=== PATIENT | female | born 1995 | race Caucasian/White ===

== ENCOUNTER 2016-11-16 03:06 | Emergency (ER) | payer MEDICAID, OTHER ==
[2016-11-16] MEDS ORDERED: oxyCODONE/Acetamin 5/325 MG* TAB PO ONE (03:35)
[2016-11-16] MEDS ORDERED: Amoxicillin PO (*) 500 MG CAP PO ONE (03:35)
[2016-11-16 03:49] VITALS: BP 142/70
--- NOTE | 2016-11-16 04:27 | ED ---
fortunato Menjivar Timothy, scribed for Brigido Beyer on 11/16/16 at 0326 . Throat Pain/Nasal Congestion - HPI Summary HPI Summary: Bella Gray is a 20 yo female presenting to [facility] with 10/10 lower right posterior dental pain since 0200 this morning. She self-medicated with 1gm tylenol at 0230 this morning. She states she was eating and her tooth "cracked" . Her MHx includes gestational DM, gallstones. - History of Current Complaint Time Seen by Provider: 11/16/16 03:26 Hx Obtained From: Patient Onset/Duration: Sudden Onset, Lasting Hours, Still Present Severity: Moderate - Allergies/Home Medications Allergies/Adverse Reactions: Allergies Allergy/AdvReac Type Severity Reaction Status Date / Time No Known Allergies Allergy Verified 02/10/16 07:28 PMH/Surg Hx/FS Hx/Imm Hx Endocrine/Hematology History: Denies: Hx Anticoagulant Therapy, Hx Diabetes - gestional during , Hx Thyroid Disease Cardiovascular History: Denies: Hx Hypercholesterolemia, Hx Hypertension, Hx Pacemaker/ICD, Hx Peripheral Vascular Disease Respiratory History: Denies: Hx Asthma, Hx Chronic Obstructive Pulmonary Disease (COPD) GI History: Reports: Other GI Disorders - gallstones History: Denies: Hx Renal Disease Musculoskeletal History: Denies: Hx Arthritis, Hx Osteoporosis, Hx Scoliosis Sensory History: Denies: Hx Cataracts, Hx Contacts or Glasses, Hx Glaucoma, Hx Hearing Aid Opthamlomology History: Denies: Hx Cataracts, Hx Contacts or Glasses, Hx Glaucoma Neurological History: Denies: Hx Dementia, Hx Headaches, Hx Seizures, Other Neuro Impairments/ Disorders Psychiatric History: Denies: Hx Anxiety, Hx Depression, Hx Panic Disorder, Hx Substance Abuse - Surgical History Surgery Procedure, Year, and Place: GALBLADDER Infectious Disease History: No Infectious Disease History: Denies: Hx Hepatitis, Hx Human Immunodeficiency Virus (HIV), Traveled Outside the [place] in Last 30 Days - Family History Known Family History: Positive: Hypertension, Other - CVA - Social History Alcohol Use: Rare Substance Use Type: Reports: None, Other Substance Use Comment - Amount & Last Used: unknown Smoking Status (MU): Never Smoked Tobacco Have You Smoked in the Last Year: No Review of Systems Constitutional: Negative Eyes: Negative Positive: Dental Pain - lower right posterior Cardiovascular: Negative Respiratory: Negative Gastrointestinal: Negative Genitourinary: Negative Musculoskeletal: Negative Skin: Negative Neurological: Negative Psychological: Normal All Other Systems Reviewed And Are Negative: Yes Physical Exam Triage Information Reviewed: Yes Vital Signs On Initial Exam: Initial Vitals Temp Pulse Resp BP Pulse Ox 98.4 F 90 18 158/74 100 11/16/16 03:11 11/16/16 03:11 11/16/16 03:11 11/16/16 03:11 11/16/16 03:11 Vital Signs Reviewed: Yes Appearance: Positive: Well-Appearing, Well-Nourished, Pain Distress Skin: Positive: Warm, Skin Color Reflects Adequate Perfusion, Dry Head/Face: Positive: Normal Head/Face Inspection Eyes: Positive: EOMI, LEANNE ENT: Positive: Normal ENT inspection Dental: Positive: Percussion Tenderness @ - around teth 28 and 29 Neck: Positive: Supple, Nontender Respiratory/Lung Sounds: Positive: Clear to Auscultation, Breath Sounds Present Cardiovascular: Positive: RRR, Pulses are Symmetrical in both Upper and Lower Extremities Musculoskeletal: Positive: Normal, Strength/ROM Intact Neurological: Positive: Normal, Sensory/Motor Intact, Alert, Oriented to Person Place, Time Psychiatric: Positive: Normal Diagnostics - Vital Signs Vital Signs Temp Pulse Resp BP Pulse Ox 11/16/16 03:11 98.4 F 90 18 158/74 100 - Laboratory Lab Statement: Any lab studies that have been ordered have been reviewed, and results considered in the medical decision making process. EENT Course/Dx - Course Assessment/Plan: Belal Gray is a 20 yo female presenting with 10/10 lower right posterior dental pain since 0200, stating that she has a cracked tooth in that area. After clinical examination, she will be discharged home with dental pain and appropriate instructions. - Diagnoses Provider Diagnoses: Pain, dental Discharge - Discharge Plan Condition: Stable Disposition: HOME Patient Education Materials: Toothache (ED) Referrals: No Primary Care Phys,NOPCP [Primary Care Provider] - [facility] [place] [facility] [place]] - 3 Days Additional Instructions: Please follow up with the primary care physician provided regarding your visit to the emergency department, as well as dentist. Return to the emergency department with any new or recurring symptoms. The documentation as recorded by the fortunato munoz Timothy accurately reflects the service I personally performed and the decisions made by , Brigido Beyer.
== END 2016-11-16 03:47 | disposition home or self-care (01) ==
LOC: ED 03:06
DX: K08.89 Other specified disorders of teeth and supporting structures (principal)
CPT/HCPCS: 99282; A9270-GY

== ENCOUNTER 2017-12-07 11:54 | Emergency (ER) | payer OTHER ==
[2017-12-07 12:16] VITALS: BP 114/73
--- NOTE | 2017-12-07 14:02 | ED ---
Gallo Menjivar Tecjoon, scribed for Hernandez Gonsalves MD on 12/07/17 at 1241 . 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 Patients needle accidentally stuck chief of police and they volunteered to be tested for HIV and Hepatits C. Patient states that before today, they were texted at detox. Patient states that the needle in question was used to draw out the stuff and was not used in the skin. The needle was last used weeks ago. Patient have no pertinent medical complaints. - History Of Current Complaint Chief Complaint: EDGeneral Time Seen by Provider: 12/07/17 12:25 Hx Obtained From: Patient Onset/Duration: Resolved Severity Currently: None Aggravating Factor(s): nothing Alleviating Factor(s): nothing - Allergies/Home Medications Allergies/Adverse Reactions: Allergies Allergy/AdvReac Type Severity Reaction Status Date / Time No Known Allergies Allergy Verified 11/16/16 03:56 PMH/Surg Hx/FS Hx/Imm Hx Previously Healthy: Yes Endocrine/Hematology History: Denies: Hx Anticoagulant Therapy, Hx Diabetes - gestional during , Hx Thyroid Disease Cardiovascular History: Denies: Hx Hypercholesterolemia, Hx Hypertension, Hx Pacemaker/ICD, Hx Peripheral Vascular Disease Respiratory History: Denies: Hx Asthma, Hx Chronic Obstructive Pulmonary Disease (COPD) GI History: Reports: Other GI Disorders - gallstones History: Denies: Hx Renal Disease Musculoskeletal History: Denies: Hx Arthritis, Hx Osteoporosis, Hx Scoliosis Sensory History: Denies: Hx Cataracts, Hx Contacts or Glasses, Hx Glaucoma, Hx Hearing Aid Opthamlomology History: Denies: Hx Cataracts, Hx Contacts or Glasses, Hx Glaucoma Neurological History: Denies: Hx Dementia, Hx Headaches, Hx Seizures, Other Neuro Impairments/ Disorders Psychiatric History: Denies: Hx Anxiety, Hx Depression, Hx Panic Disorder, Hx Substance Abuse - Surgical History Surgery Procedure, Year, and Place: GALBLADDER Infectious Disease History: No Infectious Disease History: Denies: Hx Hepatitis, Hx Human Immunodeficiency Virus (HIV), Traveled Outside the [place] in Last 30 Days - Family History Known Family History: Positive: Hypertension, Other - CVA - Social History Alcohol Use: Rare Hx Substance Use: Yes Substance Use Type: Reports: Heroin Hx Tobacco Use: No Smoking Status (MU): Never Smoked Tobacco Have You Smoked in the Last Year: No Review of Systems Negative: Fever Negative: Abdominal Pain All Other Systems Reviewed And Are Negative: Yes Physical Exam - Summary Physical Exam Summary: Appearance: Well appearing, no pain distress Skin: warm, dry, reflects adequate perfusion Head/face: normal Eyes: EOMI, LEANNE ENT: normal Neck: supple, non-tender Respiratory: CTA, breath sounds present Cardiovascular: RRR, pulses symmetrical Abdomen: non-tender, soft Bowel Sounds: present Musculoskeletal: normal, strength/ROM intact Neuro: normal, sensory motor intact, A&Ox3 Triage Information Reviewed: Yes Vital Signs On Initial Exam: Initial Vitals Temp Pulse Resp BP Pulse Ox 99 F 80 16 114/73 99 12/07/17 12:14 12/07/17 12:14 12/07/17 12:14 12/07/17 12:14 12/07/17 12:14 Vital Signs Reviewed: Yes Diagnostics - Vital Signs Vital Signs Temp Pulse Resp BP Pulse Ox 12/07/17 12:14 99 F 80 16 114/73 99 - Laboratory Lab Results: Lab Results 12/07/17 Range/Units 12:25 Hepatitis C Antibody Pending HIV 1&2 Antibody Rapid Nonreactive (Nonreactive) Lab Statement: Any lab studies that have been ordered have been reviewed, and results considered in the medical decision making process. Complex Multi-Symp Course/Dx Course Of Treatment: This patient is a 22 year old female presenting to [facility] for voluntary blood draw following needle exposure to chief of police. Patients needle accidentally stuck chief of police and they volunteered to be tested for HIV and Hepatits C. Patients will be discharged with diagnosis of opiate addiction after blood draw. The patient is agreeable with this plan. HIV neg. Pending Hep C. - Diagnoses Provider Diagnoses: Opiate addiction Discharge - Sign-Out/Discharge Documenting (check all that apply): Discharge - Discharge Plan Condition: Good Disposition: HOME Referrals: No Primary Care Phys,NOPCP [Primary Care Provider] - - Billing Disposition and Condition Condition: GOOD Disposition: HOME The documentation as recorded by the Gallo munoz Tecjoon accurately reflects the service I personally performed and the decisions made by , Hernandez Gonsalves MD.
== END 2017-12-07 13:00 | disposition home or self-care (01) ==
LOC: ED 11:54
DX: F11.20 Opioid dependence, uncomplicated (principal)
CPT/HCPCS: 36415; 86703; 86803; 99281

== ENCOUNTER 2018-05-18 21:45 | Inpatient (IN) | payer MEDICAID ==
[2018-05-18] MEDS ORDERED: Penicillin G Potassium IV* 5,000,000 UNITS in NS 0.9% 100 ML* 100 ML IVPB ONE (22:44)
--- NOTE | 2018-05-18 23:02 | HP ---
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 Past Surgical History Comment: Laparoscopic cholecystectomy 2014 Pertinent Family History: See Records - Antepartal Records Antepartal Records: Reviewed, Complicated by: - late care seeker Review of Systems Constitutional: Uncomfortable CV Complaint: No Respiratory: Shortness of Breath: No Gastrointestinal: No Nausea/Vomiting, Soft Stool Genitourinary: No Leaking Fluid Musculoskeletal: Contractions Neurological: No Headache, No Visual Changes Movement: Normal Exam Allergies/Adverse Reactions: Allergies No Known Allergies Allergy (Verified 05/17/18 20:35) - Measurements Height: 5 ft 1 in Weight: 167 lb Body Mass Index (BMI): 31.5 Pre- Weight: 125 lb - Exam Breast: - - soft, no masses Extremities: No Edema Heart: Normal Rhythm/Heart Sounds HEENT: No Significant Findings Lungs: Clear Bilaterally Reflexes: DTR 2+ Thyroid: No Thyromegaly - Abdominal Exam Abdomen Exam: Non-Tender - Ultrasound/Biophysical Profile Ultrasound Status: Not Done Targeted Exam Findings Estimated Weight: 7 lbs Cervical Exam: 4cm Effacement: 80% Station: 0 Presenting Part: Vertex Membrane Status: Bulging Bleeding/Discharge: Bloody Show EFM Findings - External Monitor Findings Baseline Heart Rate: 130 External Monitor Findings: Accelerations Present, No Pattern of Variable or Late Decelerations, Variability Moderate External Monitor Findings Comment: category 1 Contractions: Regular, Moderate, 45-90 Seconds Contraction Frequency: 2-3 min Assessment/Plan - Assessment at 39 w 5d in early labor - Obstetrical Risk Factors Obstetrical Risk Factors: GBS Positive, Substance Abuse - Plan Plan: Admit - Anticipate Vaginal Delivery Plan Comment: will begin PCN prophylaxis May want nitrous oxide or epidural for pain relief - Date/Time of Admission Date of Admission: 05/18/18 Time of Admission: 23:00
[2018-05-18 23:23] LABS: ABS Basophils 0.1 10^3/ul (0-0.2); ABS Eosinophils 0.2 10^3/ul (0-0.6); ABS Lymphocytes 1.8 10^3/ul (1.0-4.8); ABS Monocytes 0.6 10^3/ul (0-0.8); ABS Neutrophils 7.9 10^3/ul (1.5-7.7); ABS Nucleated RBC 0 10^3/ul; Eosinophil % 1.4 % (0-6); Hematocrit 36 % (35-47); Hemoglobin 12.1 g/dl (12.0-16.0); Lymphocyte % 16.8 % (25-47); Mean Corpuscular HGB Conc 34 g/dl (31-36); Mean Corpuscular Hemoglobin 30 pg (27-31); Mean Corpuscular Volume 89 fL (80-97); Mean Platelet Volume 8.7 um3 (7.4-10.4); Nucleated Red Blood Cells % 0.1; Platelet Count 279 10^3/ul (150-450); Red Blood Count 4.03 10^6/ul (4.00-5.40); Red Cell Distribution Width 14 % (10.5-15); White Blood Count 10.5 10^3/ul (3.5-10.8)
[2018-05-19] MEDS ORDERED: OBEPIDURAL* 250 ML EPIDURAL ONE (01:11)
[2018-05-19] MEDS ORDERED: Famotidine TAB* 20 MG PO PRN (02:14)
[2018-05-19] MEDS ORDERED: Phenylephrine IV* 40 MCG/ML 10 ML SYRINGE IV PUSH PRN ×2 (02:14)
[2018-05-19] MEDS ORDERED: Sodium Citrate/Citric Acid* 15 ML UDC PO PRN (02:14)
[2018-05-19] MEDS ORDERED: Famotidine IV* 10 MG/ML 2 ML (20 mg) IV PRN (02:14)
[2018-05-19] MEDS ORDERED: Oxytocin in LR* 20 UNITS/1,000 ML BAG IVPB ONE (02:34)
[2018-05-19] MEDS ORDERED: RHO D Immune Globulin (HUMAN)* 300 MCG = 1,500 I.U. INJ IM ONE (02:48)
[2018-05-19] MEDS ORDERED: Witch Hazel PAD* JAR TOPICAL PRN (02:48)
[2018-05-19] MEDS ORDERED: Ibuprofen TAB* 600 MG ONE (02:48)
[2018-05-19] MEDS ORDERED: Glycerin ADULT SUPP PR PRN (02:48)
[2018-05-19] MEDS ORDERED: Dibucaine 1% 28.35 GM TUBE PR PRN (02:48)
[2018-05-19] MEDS ORDERED: Acetaminophen TAB* 325 MG PO PRN (02:48)
[2018-05-19] MEDS ORDERED: Oxytocin in LR* 20 UNITS/1,000 ML BAG IVPB SCH (03:00)
[2018-05-19] MEDS ORDERED: OBEPIDURAL* 250 ML EPIDURAL SCH (03:00)
[2018-05-19] MEDS ORDERED: Penicillin G Potassium IV* 2,500,000 UNITS in NS 0.9% 100 ML* 100 ML IVPB SCH (03:00)
--- NOTE | 2018-05-19 03:02 | PROCNOTE ---
[facility] OB: Delivery Note - Delivery A Date of : 05/19/18 Time of : 02:27 [place] Sex: Male Weight at : 7 lb 13 oz Score 1 Minute: 8 Score 5 Minutes: 9 Gestational Age in Weeks and Days at Delivery: 39 Weeks and 6 Days Delivery Method: Spontaneous Vaginal Labor: Spontaneous Estimated Blood Loss: 200 Anesthesia/Analgesia: CEI for Labor Anesthesia Comment: Dr. Cohen Delivered By: Karen Ogden - Nursery Level of Nursery: Regular/Bedside - Perineum Perineal Injury: Abrasion Only - Not Repaired Perineal Injury Comment: periurethral abrasion - Events Delivery Events of Note: Partial Course of Antibiotics - Additional Delivery Notes Additional Delivery Notes: Sudden onset of pressure/urge to push. AROM clear fluid at 0226 with BOW on perineum. Infant delivered OA, to maternal abd, stimulation for approx 30 sec to initiate crying, then baby vigorous. Placenta Chele. FF, IV with pitocin running. EBL 200cc. Upon inspection, periurethral abrasion noted, not repaired. Infant with facial bruising but otherwise good condition.
[2018-05-19] MEDS ORDERED: Buprenorphine TAB* 8 MG SL SCH (09:00)
[2018-05-19] MEDS: Ibuprofen TAB* 600 MG PO PRN ×2 (09:09→20:53)
[2018-05-19] MEDS: Buprenorphine TAB* 8 MG SL SCH ×2 (15:19→20:54)
[2018-05-19] MEDS: Docusate CAP* 100 MG PO SCH (15:20)
[2018-05-20 07:15] LABS: ABS Basophils 0.1 10^3/ul (0-0.2); ABS Eosinophils 0.2 10^3/ul (0-0.6); ABS Lymphocytes 2.9 10^3/ul (1.0-4.8); ABS Monocytes 0.7 10^3/ul (0-0.8); ABS Nucleated RBC 0 10^3/ul; Eosinophil % 2.4 % (0-6); Hematocrit 32 % (35-47); Hemoglobin 10.7 g/dl (12.0-16.0); Lymphocyte % 29.1 % (25-47); Mean Corpuscular HGB Conc 34 g/dl (31-36); Mean Corpuscular Hemoglobin 30 pg (27-31); Mean Corpuscular Volume 89 fL (80-97); Mean Platelet Volume 8.2 um3 (7.4-10.4); Nucleated Red Blood Cells % 0.1; Platelet Count 250 10^3/ul (150-450); Red Blood Count 3.57 10^6/ul (4.00-5.40); Red Cell Distribution Width 14 % (10.5-15); White Blood Count 9.9 10^3/ul (3.5-10.8)
[2018-05-20] MEDS ORDERED: Ferrous Gluconate TAB* 324 MG TAB PO SCH (09:00)
[2018-05-20] MEDS: Buprenorphine TAB* 8 MG SL SCH ×3 (09:30→20:54)
[2018-05-20] MEDS: Ibuprofen TAB* 600 MG PO PRN ×3 (09:33→20:54)
[2018-05-20] MEDS: Docusate CAP* 100 MG PO SCH ×3 (09:33→15:36)
[2018-05-21 08:32] VITALS: BP 107/64
[2018-05-21] MEDS: Buprenorphine TAB* 8 MG SL SCH ×2 (09:20→13:59)
[2018-05-21] MEDS: Docusate CAP* 100 MG PO SCH (09:40)
== END 2018-05-21 18:00 | disposition home or self-care (01) | DRG 560 ==
LOC: MCHOBOUT 21:45 → MCHOB 22:50
PROVIDERS: ADMIT Midwife; ATTEND Midwife
PROC: 10E0XZZ Delivery of Products of Conception, External Approach (ICD-10-PCS; principal; 2018-05-19)
PROC: 10907ZC Drainage of Amniotic Fluid, Therapeutic from Products of Conception, Via Natural or Artificial Opening (ICD-10-PCS; 2018-05-19)
DX: O99.824 Streptococcus B carrier state complicating childbirth (principal); O70.0 First degree perineal laceration during delivery; Z3A.39 39 weeks gestation of pregnancy; Z37.0 Single live birth
CPT/HCPCS: 36415; 80307; 85025; 85461; 86850; 86870; 86880; 86900; 86901; 90686; A9270-GY; J2540; J2790

== ENCOUNTER 2020-03-20 20:18 | Inpatient (IN) ==
[2020-03-20] MEDS ORDERED: Lactated Ringers 1000 ml BAG 1,000 ML IV ONE (21:00)
[2020-03-20] MEDS ORDERED: Penicillin G Potassium IV 5,000,000 UNITS in NS 0.9% 100 ml BAG 100 ML IVPB ONE (21:00)
[2020-03-20] MEDS ORDERED: Lactated Ringers 1000 ml BAG 1,000 ML IV SCH (21:00)
[2020-03-20 22:03] LABS: ABS Basophils 0.1 10^3/ul (0-0.2); ABS Eosinophils 0.1 10^3/ul (0-0.6); ABS Monocytes 0.6 10^3/ul (0-0.8); ABS Neutrophils 7.3 10^3/ul (1.5-7.7); Eosinophil % 1.2 %; Hematocrit 33 % (35-47); Hemoglobin 11.2 g/dL (12.0-16.0); Mean Corpuscular HGB Conc 34 g/dL (31-36); Mean Corpuscular Hemoglobin 30 pg (27-31); Mean Corpuscular Volume 87 fL (80-97); Mean Platelet Volume 8.6 fL (7.4-10.4); Platelet Count 264 10^3/uL (150-450); Red Blood Count 3.77 10^6 /uL (3.70-4.87); Red Cell Distribution Width 16 % (10-15); White Blood Count 10.1 10^3/uL (3.5-10.8)
[2020-03-20 22:16] LABS: Urine Benzodiazepine Screen None Detected (None Detect); Urine Cannabinoids Screen None Detected (None Detect); Urine Opiates Screen None Detected (None Detect)
[2020-03-21] MEDS ORDERED: OBEPIDURAL 0 ML EPIDURAL ONE (01:39)
[2020-03-21] MEDS ORDERED: Lidocaine 2% w/ EPI 1:200,000 MPF 20 ML SDV VIAL ONE (01:58)
[2020-03-21] MEDS ORDERED: Penicillin G Potassium IV 3,000,000 UNITS in NS 0.9% 100 ml BAG 100 ML IVPB SCH (02:00)
[2020-03-21] MEDS ORDERED: Dibucaine 1% OINT 28.35 GM TUBE PR PRN (03:14)
[2020-03-21] MEDS ORDERED: Witch Hazel PAD JAR TOPICAL PRN (03:14)
[2020-03-21] MEDS ORDERED: Glycerin ADULT 2.4 gm SUPP PR PRN (03:14)
[2020-03-21] MEDS ORDERED: Lactated Ringers 1000 ml BAG 1,000 ML IV SCH (04:00)
[2020-03-22 07:08] LABS: ABS Eosinophils 0.2 10^3/ul (0-0.6); ABS Lymphocytes 2.7 10^3/ul (1.0-4.8); ABS Monocytes 0.6 10^3/ul (0-0.8); Eosinophil % 2.5 %; Hematocrit 30 % (35-47); Hemoglobin 10.1 g/dL (12.0-16.0); Lymphocyte % 31.6 %; Mean Corpuscular HGB Conc 34 g/dL (31-36); Mean Corpuscular Hemoglobin 30 pg (27-31); Mean Corpuscular Volume 87 fL (80-97); Mean Platelet Volume 8.5 fL (7.4-10.4); Platelet Count 223 10^3/uL (150-450); Red Blood Count 3.41 10^6 /uL (3.70-4.87); Red Cell Distribution Width 17 % (10-15); White Blood Count 8.5 10^3/uL (3.5-10.8)
[2020-03-23 10:10] VITALS: BP 132/80
[2020-03-23] MEDS ORDERED: RHO D Immune Globulin (HUMAN) 300 MCG = 1,500 I.U. INJ IM ONE (10:20)
== END 2020-03-23 12:05 | disposition home or self-care (01) | DRG 560 ==
LOC: MCHOBOUT 20:18 → MCHOB 20:54
PROVIDERS: ADMIT Obstetrics & Gynecology; ATTEND Obstetrics & Gynecology

== ENCOUNTER 2022-05-14 06:17 | Inpatient (IN) ==
[2022-05-14] MEDS ORDERED: Lactated Ringers 1000 ml BAG 1,000 ML IV ONE (06:41)
[2022-05-14] MEDS ORDERED: Buffered Lidocaine 1% SYRIN 1 ml INTRADERM ONE (06:41)
[2022-05-14] MEDS ORDERED: Penicillin G Potassium IV 5,000,000 UNITS in NS 0.9% 100 ml BAG 100 ML IVPB ONE (06:54)
[2022-05-14] MEDS ORDERED: Lactated Ringers 1000 ml BAG 1,000 ML IV SCH (07:00)
[2022-05-14] MEDS ORDERED: Witch Hazel PAD JAR TOPICAL PRN (07:36)
[2022-05-14] MEDS ORDERED: RHO D Immune Globulin (HUMAN) 300 MCG = 1,500 I.U. INJ IM PRN (07:36)
[2022-05-14] MEDS ORDERED: Dibucaine 1% OINT 28.35 GM TUBE PR PRN (07:36)
[2022-05-14] MEDS ORDERED: Glycerin ADULT 2.4 gm SUPP PR PRN (07:36)
[2022-05-15 01:41] LABS: Urine Benzodiazepine Screen None Detected (None Detect); Urine Cannabinoids Screen None Detected (None Detect); Urine Opiates Screen None Detected (None Detect)
[2022-05-15 07:31] LABS: ABS Basophils 0.1 10^3/ul (0-0.2); ABS Eosinophils 0.1 10^3/ul (0-0.6); ABS Lymphocytes 2.5 10^3/ul (1.0-4.8); ABS Monocytes 0.5 10^3/ul (0-0.8); ABS Neutrophils 4.7 10^3/ul (1.5-7.7); Eosinophil % 1.8 %; Hematocrit 30 % (35-47); Hemoglobin 10.8 g/dL (12.0-16.0); Lymphocyte % 31.6 %; Mean Corpuscular HGB Conc 36 g/dL (31-36); Mean Corpuscular Hemoglobin 32 pg (27-31); Mean Corpuscular Volume 88 fL (80-97); Platelet Count 253 10^3/uL (150-450); Red Blood Count 3.41 10^6 /uL (3.70-4.87); Red Cell Distribution Width 15 % (10-15); White Blood Count 7.9 10^3/uL (3.5-10.8)
[2022-05-16 11:21] VITALS: BP 111/61
== END 2022-05-16 16:50 | disposition home or self-care (01) | DRG 560 ==
LOC: MCHOBOUT 06:17 → MCHOB 06:19
PROVIDERS: ADMIT Midwife; ATTEND Midwife

== ENCOUNTER 2024-07-27 12:15 | Inpatient (IN) ==
[2024-07-27 13:51] LABS: ABS Basophils 0.1 10^3/uL (0.0-0.1); ABS Eosinophils 0.1 10^3/uL (0.0-0.5); ABS Lymphocytes 1.5 10^3/uL (1.0-4.8); ABS Monocytes 0.6 10^3/uL (0.0-0.9); ABS Neutrophils 8.4 10^3/uL (1.5-7.6); ABS Nucleated RBC 0.01 10^3/ul; Eosinophil % 0.7 %; Hematocrit 27.6 % (35-45); Hemoglobin 9.1 g/dL (11.5-14.3); Lymphocyte % 13.8 %; Mean Corpuscular Hemoglobin 27.1 pg (27-33); Mean Corpuscular Hgb Conc 33.1 g/dL (31-36); Mean Corpuscular Volume 81.7 fL (80-97); Mean Platelet Volume 8.7 fL (7.5-11.2); Nucleated Red Blood Cells % 0.1 %/100WBC (0.0-0.8); Platelet Count 248 10^3/uL (150-450); Red Blood Count 3.38 10^6/uL (3.63-4.92); Red Cell Distribution Width 16.9 % (12-17); White Blood Count 10.6 10^3/uL (3.8-11.8)
[2024-07-27 14:13] LABS: Urine Appearance Clear; Urine Bilirubin Negative (Negative); Urine Blood 3+ (Negative); Urine Color Light-Yellow; Urine Glucose Negative (Negative); Urine Ketones 1+ (Negative); Urine Nitrite Negative (Negative); Urine Protein Negative (Negative); Urine Specific Gravity 1.015 (1.002-1.030); Urine Urobilinogen Negative (Negative); Urine pH 6.5 (5.0-8.0)
[2024-07-27 14:18] LABS: Urine Bacteria 1+ /HPF (Absent); Urine Red Blood Cell 3+(>10/hpf) /HPF (0-Trace); Urine Squamous Epithelial Cell Present /HPF (Absent); Urine White Blood Cell Trace(0-5/hpf) /HPF (0-Trace)
[2024-07-27 14:21] LABS: Urine Benzodiazepine Screen None Detected (None Detect); Urine Cannabinoids Screen None Detected (None Detect); Urine Opiates Screen None Detected (None Detect)
[2024-07-27] MEDS ORDERED: Terbutaline INJ 1 MG/ML 1 ml VIAL SUBCUT ONE (14:29)
[2024-07-27] MEDS ORDERED: Lidocaine 1% VIAL 10 MG/ML 30 ML VIAL INJ PRN (14:29)
[2024-07-27] MEDS: Lactated Ringers 1000 ml BAG 1,000 ML IV SCH (14:48)
[2024-07-27] MEDS: Betamethasone 6 mg/ml 5 ml VIAL IM ONE (15:02)
[2024-07-27 15:28] LABS: Activated Partial Thrombo Time 26.7 seconds (26.0-38.0); INR 0.97 (0.85-1.14)
[2024-07-27] MEDS ORDERED: Sodium Citrate/Citric Acid LIQ 15 ML UDC PO PRN (15:32)
[2024-07-27] MEDS ORDERED: Phenylephrine 40 mcg/mL 10mL (400mcg) SYRINGE IV PUSH PRN ×2 (15:32)
[2024-07-27] MEDS: Lactated Ringers 1000 ml BAG 1,000 ML IV ONE ×2 (16:00→16:15)
[2024-07-27] MEDS: Penicillin G Potassium IV 5,000,000 UNITS in NS 0.9% 100 ml BAG 100 ML IVPB ONE (16:16)
[2024-07-27] MEDS: OBEPIDURAL (200 ML) 200 ML EPIDURAL SCH (16:16)
[2024-07-27] MEDS: Buffered Lidocaine 1% SYRIN 1 ml INTRADERM ONE ×2 (16:16→16:17)
[2024-07-27] MEDS: OBEPIDURAL (200 ML) 200 ML EPIDURAL ONE (16:17)
[2024-07-27] MEDS: Lidocaine 1.5% EPI 1:200,000 30 ML SDV ONE (16:17)
[2024-07-27 16:46] LABS: Urine Appearance Clear; Urine Bilirubin Negative (Negative); Urine Blood Negative (Negative); Urine Color Yellow; Urine Glucose Negative (Negative); Urine Ketones 3+ (Negative); Urine Nitrite Negative (Negative); Urine Protein Negative (Negative); Urine Urobilinogen Negative (Negative)
[2024-07-27] MEDS ORDERED: Dibucaine 1% OINT 28.35 GM TUBE PR PRN (17:38)
[2024-07-27] MEDS ORDERED: Witch Hazel PAD JAR TOPICAL PRN (17:38)
[2024-07-27] MEDS ORDERED: Glycerin ADULT 2.4 gm SUPP PR PRN (17:38)
[2024-07-27] MEDS: Oxytocin in LR 20,000 MILLI.UNIT/1,000 ML BAG IV SCH (17:39)
[2024-07-27] MEDS ORDERED: Lactated Ringers 1000 ml BAG 1,000 ML IV SCH (18:00)
[2024-07-27] MEDS ORDERED: Penicillin G Potassium IV 3,000,000 UNITS in NS 0.9% 100 ml BAG 100 ML IVPB SCH (20:00)
[2024-07-28 07:04] LABS: ABS Basophils 0.1 10^3/uL (0.0-0.1); ABS Lymphocytes 1.6 10^3/uL (1.0-4.8); ABS Monocytes 1.3 10^3/uL (0.0-0.9); ABS Neutrophils 18.1 10^3/uL (1.5-7.6); ABS Nucleated RBC 0.01 10^3/ul; Hematocrit 25.2 % (35-45); Hemoglobin 8.2 g/dL (11.5-14.3); Lymphocyte % 7.4 %; Mean Corpuscular Hemoglobin 26.8 pg (27-33); Mean Corpuscular Hgb Conc 32.8 g/dL (31-36); Mean Corpuscular Volume 81.7 fL (80-97); Mean Platelet Volume 8.9 fL (7.5-11.2); Platelet Count 270 10^3/uL (150-450); Red Blood Count 3.08 10^6/uL (3.63-4.92); Red Cell Distribution Width 16.9 % (12-17); White Blood Count 21.1 10^3/uL (3.8-11.8)
[2024-07-28] MEDS: Lactated Ringers 1000 ml BAG 1,000 ML IV SCH (12:18)
[2024-07-28] MEDS: Phenylephrine 40 mcg/mL 10mL (400mcg) SYRINGE ONE (12:18)
[2024-07-28] MEDS: Oxytocin in LR 20,000 MILLI.UNIT/1,000 ML BAG IV SCH (12:19)
[2024-07-28 12:59] VITALS: BP 106/51
[2024-07-28] MEDS: RHO D Immune Globulin (HUMAN) 300 MCG = 1,500 I.U. INJ IM ONE (15:31)
[2024-07-28] MEDS: Iron Sucrose 200 MG in NS 0.9% 100 ml BAG 100 ML IVPB ONE (15:36)
[2024-07-30 12:18] LABS: Candida Species NAA Negative (Negative)
[2024-07-30 12:28] LABS: RPR Nonreactive (Nonreactive)
[2024-07-30 12:54] LABS: Chlamydia trachomatis NAA Negative (Negative); Neisseria gonorrhoeae (GC) NAA Negative (Negative)
[2024-07-30 14:16] LABS: Mycoplasma genitalium NAA Negative (Negative)
[2024-08-01 15:31] LABS: T.Pallidum TP-PA Negative (Negative)
== END 2024-07-28 17:00 | disposition home or self-care (01) | DRG 560 ==
LOC: MCHOB 14:21
PROVIDERS: ADMIT Obstetrics & Gynecology; ATTEND Midwife